=== PATIENT | female | born 1975 | race Caucasian/White ===

== ENCOUNTER 2019-08-07 16:34 | Outpatient (CLI) | payer BC ==
--- NOTE | 2019-08-07 17:01 | RAD ---
AP PELVIS ONE VIEW: HISTORY: Coccyx pain. FINDINGS: No acute fracture, dislocation or other significant acute osseous abnormality. POS: [facility]
--- NOTE | 2019-08-07 17:04 | RAD ---
SACRUM AND COCCYX THREE VIEWS: HISTORY: Coccyx pain without known injury. FINDINGS: AC joint arthrosis. No evidence for acute fracture or dislocation. If the patient has persistent or worsening sacrococcygeal pain consider follow-up non-emergent MRI to evaluate for the potential of an insufficiency type or stress type fracture which may not be evident on plain films or even CT. POS: [facility]
== END 2019-08-07 16:35 | disposition home or self-care (01) ==
LOC: BICRAD 16:34
PROVIDERS: ATTEND Family Medicine
DX: M53.3 Sacrococcygeal disorders, not elsewhere classified (principal)
CPT/HCPCS: 36415; 72170; 72220; 84439; 84443; 84481; 85025

== ENCOUNTER 2019-08-21 20:30 | Outpatient (CLI) | payer BC | END 2019-08-21 20:31 | disposition home or self-care (01) | LOC: SLEEPLAB 20:30 | PROVIDERS: ATTEND Family Medicine | DX: G47.9 Sleep disorder, unspecified (principal); R53.83 Other fatigue; R06.83 Snoring; F32.9 Major depressive disorder, single episode, unspecified; G47.00 Insomnia, unspecified; G47.10 Hypersomnia, unspecified | CPT/HCPCS: 95810 ==

== ENCOUNTER 2020-03-04 13:05 | Outpatient (CLI) | payer BC ==
--- NOTE | 2020-03-04 13:45 | ULT ---
EXAM: US Bladder PROVIDED CLINICAL HISTORY: Continuous urine leakage. COMPARISON: None FINDINGS: Urinary bladder demonstrates a normal sonographic appearance with prevoid urinary bladder volume of 1 50.3 mL. No significant post void residual is present with post void urinary bladder volume of 2.8 mL. Ureteral jets are seen bilaterally on color flow evaluation. IMPRESSION: Normal appearance of the urinary bladder without significant post void residual
== END 2020-03-04 13:06 | disposition home or self-care (01) ==
LOC: BICULT 13:05
PROVIDERS: ATTEND Family Medicine
DX: N39.45 Continuous leakage (principal)
CPT/HCPCS: 76856

== ENCOUNTER 2020-04-04 06:30 | Outpatient (CLI) | payer BC, OTHER ==
[2020-04-04 14:13] LABS: Hemoglobin 13.1 g/dL (12.0-16.0); Mean Corpuscular HGB CONC 32.7 g/dL (32.0-36.0); Mean Corpuscular Hemoglobin 27.4 pg (27.0-31.0); Mean Corpuscular Volume 83.8 fL (78.0-98.0); Mean Platelet Volume 8.6 fL (7.4-10.4); Platelet Count 259 thou/uL (130-400); RBC Distribution Width 13.3 % (11.5-14.5); Red Blood Cell (RBC) Count 4.78 mill/uL (4.20-5.40); White Blood Cell (WBC) Count 8.3 thou/uL (4.8-10.8)
[2020-04-04 14:31] LABS: Bilirubin Negative (Negative); Blood, Urine Negative (Negative); Clarity Clear (Clear); Glucose, Urine (Dipstick) Normal (Negative); Leukocyte Negative Leu/uL (Negative); Nitrite Negative (Negative); Protein, Urine (Dipstick) Negative (Neg-Trace); RBC/HPF 0-3 HPF (0-3); Urobilinogen Normal mg/dL (Less than 2); WBC/HPF 0-3 HPF (0-3)
[2020-04-04 14:32] LABS: Bacteria/HPF Rare-Few HPF (None Seen)
[2020-04-04 15:03] LABS: Anion Gap 12 mmol/L (10-20); BUN (Urea Nitrogen) 11 mg/dL (7.0-18.7); Calc. Creatinine Clearance 0 mL/min (70-130); Calcium 9.1 mg/dL (7.8-10.44); Carbon Dioxide 27 mmol/L (22-29); Chloride 105 mmol/L (98-107); Estimated GFR-MDRD 83; Glucose 77 mg/dL (70-105); Potassium 4.5 mmol/L (3.5-5.1); Sodium 139 mmol/L (136-145)
[2020-04-05 13:11] LABS: SARS-CoV-2 MS2 Positive; SARS-CoV-2 N Gene Negative; SARS-CoV-2 S Gene Negative; SARS-CoV-2 orf1ab Negative
== END 2020-04-04 06:31 | disposition home or self-care (01) ==
LOC: LABBT 06:30
PROVIDERS: ATTEND Urology
DX: Z01.818 Encounter for other preprocedural examination (principal); Z11.59 Encounter for screening for other viral diseases; N39.3 Stress incontinence (female) (male)
CPT/HCPCS: 80048; 81001; 85027; 87077; 87086; 87186; 87635; 93005; 93010; U0003

== ENCOUNTER 2020-04-08 05:58 | Day surgery (SDC) | payer BC ==
[2020-04-03 11:45] VITALS: BMI 29.5
[2020-04-08] MEDS ORDERED: metroNIDAZOLE 500 MG/100 ML BAG ONE (06:11)
[2020-04-08] MEDS ORDERED: Fentanyl 100 MCG/2 ML VIAL ONE (06:35)
[2020-04-08] MEDS ORDERED: Famotidine/PF 20 mg/2ml Vial ONE (06:36)
[2020-04-08] MEDS ORDERED: Bupivacaine 0.25% HCL 30 ML VIAL ONE (06:47)
[2020-04-08] MEDS ORDERED: Midazolam HCl 2 mg/2 ml Vial ONE (07:09)
[2020-04-08] MEDS ORDERED: Clindamycin/D5W 600 mg/50 ml Premix Bag ONE (07:13)
--- NOTE | 2020-04-08 11:09 | OP ---
DATE OF PROCEDURE: 04/08/2020 PREOPERATIVE DIAGNOSIS: Stress incontinence. POSTOPERATIVE DIAGNOSIS: Stress incontinence. PROCEDURES PERFORMED: Placement of mid urethral sling using Obtryx II sling with Halo trocars. ANESTHESIA: General. COMPLICATIONS: None. BLOOD LOSS: 50 mL. DESCRIPTION OF PROCEDURE: After informed consent, the patient was taken to the operating room, transferred to the table under her own power. Anesthesia was established. A time-out was performed ensuring the correct patient, site, and procedure. She was prepped and draped in the high lithotomy position. An 18-[place] catheter was passed through the urethra and 10 mL instilled in the balloon. This was used to help identify the mid urethra. The mid urethra was then anesthetized with 10 mL of 0.25% Marcaine. An incision was made with a #15 blade over the mid urethra, and dissection with Metzenbaum scissors carried out laterally alongside the urethra on both sides. I then identified a spot posterior to the adductor longus tendon in line with the clitoris on both sides; at which point, I made a small stab incision using the #15 blade and then injected a 0.25% Marcaine 10 mL on each side. The Halo trocar was then passed first on the patient's left side from the stab incision underneath the adductor longus tendon and passed over my finger into the operative field. The sling was affixed to this, and then the trocar retracted. The trocar was then passed on the right side following a similar technique. Attention was paid to ensure no buttonholing of the vaginal mucosa. The sling was then affixed, and the right-sided trocar removed as well. The sling was then tensioned over a marking pen cap. The catheter was then removed, and cystoscopy was performed showing no evidence of bladder or urethral injury or mesh visible. Both ureters were normal in appearance. The arms of the sling were then trimmed, and vaginal mucosa closed in a running fashion with 2-0 chromic. The stab incisions were dressed with Dermabond. At this point, the case was completed. The patient was awoken from anesthesia, transferred back to her hospital bed, and taken to PACU in stable condition, where she will discharge home upon recovery. A postvoid residual will be checked while in recovery as well. Job ID: [id number]
[2020-04-08] MEDS ORDERED: Ondansetron PF 4 MG/2 ML Vial ONE (14:33)
[2020-04-08] MEDS ORDERED: Dexamethasone 20 MG/5 ML VIAL ONE (14:33)
[2020-04-08] MEDS ORDERED: Metoclopramide HCl 10 MG/2 ML VIAL ONE (14:33)
[2020-04-08] MEDS ORDERED: PROPOFOL 200 MG/20 ML VIAL ONE (14:33)
[2020-04-08] MEDS ORDERED: Ketorolac Tromethamine 30 MG/ML VIAL ONE (14:33)
[2020-04-08] MEDS ORDERED: Lidocaine 1% PF 5 ML VIAL ONE (14:33)
== END 2020-04-08 09:42 | disposition home or self-care (01) ==
LOC: SDC 05:58
PROVIDERS: ATTEND Urology
PROC: 0TSD4ZZ Reposition Urethra, Percutaneous Endoscopic Approach (ICD-10-PCS; principal; 2020-04-08)
DX: N39.3 Stress incontinence (female) (male) (principal); F41.9 Anxiety disorder, unspecified; F32.9 Major depressive disorder, single episode, unspecified; E78.5 Hyperlipidemia, unspecified; Z79.899 Other long term (current) drug therapy; Z88.0 Allergy status to penicillin; Z87.891 Personal history of nicotine dependence
CPT/HCPCS: C1781; J1100; J1885; J2001; J2250; J2405; J2704; J2765; J3010; J3490; S0020; S0028